=== PATIENT | female | born 1985 | race African-American/Black ===

== ENCOUNTER 2016-08-15 07:54 | Emergency (ER) | payer OTHER ==
[2016-08-15 08:23] VITALS: BP 155/101; PULSE 85; TEMP 99.4; BMI 32.5
[2016-08-15] MEDS ORDERED: ONDANSETRON *ODT* 4 MG TABLET SL ONE (08:33)
[2016-08-15] MEDS ORDERED: ONDANSETRON *ODT* 4 MG TABLET ONE (08:55)
[2016-08-15 09:22] LABS: URINE APPEARANCE CLEAR; URINE BILIRUBIN NEGATIVE (NEGATIVE); URINE BLOOD NEGATIVE (NEGATIVE); URINE COLOR YELLOW; URINE GLUCOSE (UA) NEGATIVE (NEGATIVE); URINE KETONE NEGATIVE (NEGATIVE); URINE LEUK ESTERASE NEGATIVE (NEGATIVE); URINE NITRITE NEGATIVE (NEGATIVE); URINE PROTEIN NEGATIVE (NEGATIVE); URINE UROBILINOGEN NEGATIVE E.U./dl (0.2-1.0)
[2016-08-15] MEDS ORDERED: KETOROLAC TROMETHAMINE 60 MG/2 ML VIAL IM ONE (09:23)
--- NOTE | 2016-08-15 09:27 | PDOC ---
History of Present Illness - General Chief Complaint: Cold Symptoms Stated Complaint: BODY PAIN Time Seen by Provider: 08/15/16 08:33 History Source: Patient Exam Limitations: No Limitations - History of Present Illness Initial Comments: 08/15/16 09:33 31 yr female with history of sarcoidosis presents to ER with body aches and pain for one week and night sweats. Pt has cough dry, no fever no chest pain or shortness or breath. Pt denies any sick contacts. 08/15/16 09:36 Past History - Past Medical History Allergies/Adverse Reactions: Allergies Allergy/AdvReac Type Severity Reaction Status Date / Time No Known Allergies Allergy Verified 08/15/16 08:18 Home Medications: Ambulatory Orders Naproxen [Naprosyn -] 500 mg PO BID PRN #14 tablet 08/15/16 Asthma: No Cancer: No Cardiac Disorders: No Diabetes: No HTN: No Suicide Attempt (Hx): No Seizures: No Thyroid Disease: No - Immunization History Immunization Up to Date: Yes - Psycho/Social/Smoking Cessation Hx Anxiety: No Suicidal Ideation: No Smoking Status: No Smoking History: Former smoker Have you smoked in the past 12 months: No Number of Cigarettes Smoked Daily: 10 Information on smoking cessation initiated: No Hx Alcohol Use: No Drug/Substance Use Hx: No Substance Use Type: None Hx Substance Use Treatment: No Review of Systems - Review of Systems Able to Perform ROS?: Yes Is the patient limited [place] proficient: No Constitutional: Yes: Symptoms Reported, See HPI, Chills, Night Sweats HEENTM: No: Symptoms Reported Respiratory: Yes: Cough *Physical Exam - Vital Signs Last Vital Signs Temp Pulse Resp BP Pulse Ox 99.4 F 85 18 155/101 100 08/15/16 08:18 08/15/16 08:18 08/15/16 08:18 08/15/16 08:18 08/15/16 08:18 - Physical Exam General Appearance: Yes: Nourished, Appropriately Dressed HEENT: positive: EOMI, AMY, Normal ENT Inspection, TMs Normal, Pharynx Normal Neck: positive: Supple. negative: Lymphadenopathy (R), Lymphadenopathy (L) Respiratory/Chest: positive: Lungs Clear, Normal Breath Sounds. negative: Chest Tender, Respiratory Distress, Accessory Muscle Use, Crackles, Rales, Rhonchi, Stridor, Wheezing Cardiovascular: positive: Regular Rhythm, Regular Rate Gastrointestinal/Abdominal: positive: Normal Bowel Sounds, Soft Musculoskeletal: positive: Normal Inspection Extremity: positive: Normal Capillary Refill, Normal Inspection, Normal Range of Motion Integumentary: positive: Normal Color, Dry, Warm Neurologic: positive: Fully Oriented, Alert, Normal Mood/Affect, Normal Response , Motor Strength / ED Treatment Course - ADDITIONAL ORDERS Additional order review: Laboratory Results 08/15/16 08:45 Urine Color Yellow Urine Appearance Clear Urine pH 5.0 Ur Specific [place] 1.024 Urine Protein Negative Urine Glucose (UA) Negative Urine Ketones Negative Urine Blood Negative Urine Nitrite Negative Urine Bilirubin Negative Urine Urobilinogen Negative Ur Leukocyte Esterase Negative Urine HCG, Qual Negative Medical Decision Making - Medical Decision Making 08/15/16 09:36 cc: body aches and pain, cough chills, low back pain for one week no chest pain or SOB no abd pain , neg nvd will check , UTI toradol for pain, CXR flu swab pt is non toxic no acute distress 08/15/16 10:23 urine is negative, CXR is negative, pt is eating and drinking in waiting room no distress, no vomiting. will dc home with follow up wtih PMD tomorrow pt agrees with plan and understands the plan of care. all questions asked and answered. BP on discharge 130/70 left arm 139/76 right arm pt will follow with primary regarding bp. *DC/Admit/Observation/Transfer Diagnosis at time of Disposition: Acute viral syndrome - Discharge Dispostion Disposition: HOME Condition at time of disposition: Good - Prescriptions Prescriptions: Naproxen [Naprosyn -] 500 mg PO BID PRN #14 tablet PRN Reason: Pain - Referrals Referrals: Berry Singh MD [Primary Care Provider] - - Patient Instructions Additional Instructions: negative flu virus, negative pneumonia on chest xray drink pleanty of water increase your vitamin c and zinc (orange juice, over the counter Radha C or Emergency C supplements) take naprosyn for pain and body aches as needed follow with your doctor TOMORROW for a follow up visit return to ER for any worsening symptoms - Post Discharge Activity Work/School Note: Back to Work
[2016-08-15] MEDS ORDERED: KETOROLAC TROMETHAMINE 60 MG/2 ML VIAL ONE (10:08)
== END 2016-08-15 10:43 | disposition home or self-care (01) ==
LOC: JERFT 07:54
PROC: 3E0233Z Introduction of Anti-inflammatory into Muscle, Percutaneous Approach (ICD-10-PCS; principal; 2016-08-15)
DX: B34.9 Viral infection, unspecified (principal); D86.9 Sarcoidosis, unspecified; Z87.891 Personal history of nicotine dependence
CPT/HCPCS: 71020-TC; 81003; 84703; 87804; 96372; 99281-25

== ENCOUNTER 2017-01-15 09:30 | Emergency (ER) | payer OTHER ==
[2017-01-15 09:36] VITALS: BP 153/99; PULSE 92; TEMP 98.1; BMI 31.8
[2017-01-15] MEDS ORDERED: KETOROLAC TROMETHAMINE 60 MG/2 ML VIAL IM ONE (10:50)
[2017-01-15] MEDS ORDERED: CEPHALEXIN MONOHYDRATE 500 MG CAPSULE (UD) PO ONE (10:50)
--- NOTE | 2017-01-15 10:53 | PDOC ---
History of Present Illness - General Chief Complaint: Injury Stated Complaint: PAIN Time Seen by Provider: 01/15/17 10:42 History Source: Patient Exam Limitations: No Limitations - History of Present Illness Initial Comments: 01/15/17 11:08 With complaints of right foot pain, specifically second toe. States suffers from chronic athlete's foot, takes no medication or uses no creams for cure. Denies trauma, however stands most of day while at work at the [employer]. Denies fever, noted purulent drainage although nose has fungal infection between toes, specifically third and second toes worst 01/15/17 11:56 Severity: reports: moderate Pain Location: reports: lower extremity Modifying Factors: improves with: None Associated Symptoms (Fall): denies symptoms Past History - Travel Traveled outside of the country in the last 30 days: No Close contact w/someone who was outside of country & ill: No - Past Medical History Allergies/Adverse Reactions: Allergies Allergy/AdvReac Type Severity Reaction Status Date / Time No Known Allergies Allergy Verified 01/15/17 09:33 Home Medications: Ambulatory Orders Acetaminophen [Extra Strength Non-Aspirin] 500 mg PO Q6H #30 tablet 01/15/17 Cephalexin Monohydrate [Keflex -] 500 mg PO Q8H #21 capsule 01/15/17 Fluconazole [Diflucan -] 150 mg PO DAILY #1 tablet 01/15/17 Fluconazole [Diflucan -] 150 mg PO DAILY #7 tablet 01/15/17 Naproxen [Naprosyn -] 500 mg PO BID #14 tablet 01/15/17 Oxycodone HCl/Acetaminophen [Percocet 5-325 mg Tablet] 1 - 2 tab PO Q6H Asthma: No Cancer: No Cardiac Disorders: No Diabetes: No HTN: No Suicide Attempt (Hx): No Seizures: No Thyroid Disease: No Other medical history: sarcoidosis - Immunization History Immunization Up to Date: Yes - Psycho/Social/Smoking Cessation Hx Anxiety: No Suicidal Ideation: No Smoking Status: No Smoking History: Never smoked Have you smoked in the past 12 months: No Number of Cigarettes Smoked Daily: 10 Information on smoking cessation initiated: No Hx Alcohol Use: No Drug/Substance Use Hx: No Substance Use Type: None Hx Substance Use Treatment: No Trauma Specific PMHX - Complaint Specific PMHX Back Injury: No Neck Injury: No Review of Systems - Review of Systems Able to Perform ROS?: Yes Is the patient limited Citizen [place] proficient: Yes Constitutional: Yes: Symptoms Reported, See HPI, Malaise. No: Chills, Fever HEENTM: Yes: See HPI. No: Symptoms Reported Musculoskeletal: Yes: Symptoms Reported, Joint Pain Integumentary: Yes: Symptoms Reported, See HPI, Lesions (tinea infections), Rash Neurological: Yes: Symptoms reported All Other Systems: Reviewed and Negative *Physical Exam - Vital Signs Last Vital Signs Temp Pulse Resp BP Pulse Ox 98.1 F 92 H 18 153/99 100 01/15/17 09:34 01/15/17 09:34 01/15/17 09:34 01/15/17 09:34 01/15/17 09:34 - Physical Exam General Appearance: Yes: Nourished, Appropriately Dressed, Apparent Distress, Mild Distress HEENT: positive: AMY, Normal ENT Inspection, TMs Normal, Pharynx Normal Neck: positive: Supple. negative: Tender, Lymphadenopathy (R), Lymphadenopathy (L) Respiratory/Chest: positive: Lungs Clear, Normal Breath Sounds Extremity: positive: Normal Range of Motion, Tender, Swelling (to left 2nd toe thick white moist drainage with some ulceration noted between all toes, worse between second and third toe of right foot. Has severe nail changes due to onychomycosis, and bilateral soles of feet covered with a tibial infection. Has some mild erythema noted to the second and third toes and pain at MTP.), Erythema. 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 We'll treat with weekly Diflucan 6 weeks , encourage bleach baths, and follow up with podiatry. Also started on Keflex for mild cellulitis noted secondary to candidal infection *DC/Admit/Observation/Transfer Diagnosis at time of Disposition: Tinea pedis due to trichophyton - Discharge Dispostion Disposition: HOME Condition at time of disposition: Stable Admit: No - Prescriptions Prescriptions: Fluconazole [Diflucan -] 150 mg PO DAILY #1 tablet Fluconazole [Diflucan -] 150 mg PO DAILY #7 tablet Cephalexin Monohydrate [Keflex -] 500 mg PO Q8H #21 capsule Naproxen [Naprosyn -] 500 mg PO BID #14 tablet - Referrals Referrals: Berry Singh MD [Primary Care Provider] - - Patient Instructions Printed Discharge Instructions: DI for Athlete's Foot Additional Instructions: Rest, keep cool and dry- avoid strenuous activity or hot /humid environments Less hot showers, no abrasive soaps May use heavy creams like Eucerin or Cetaphil to keep skin moist May apply Aveeno, calamine lotion, [id number] hydrocortisone creams as needed for symptoms May use Benadryl at night for antihistamine, Zyrtec/ Gisela or Claritin for daytime antihistamine use to help with itching May use tqok-mag-hccavso hydrocortisone cream on all areas except face Try to identify cause for rash and avoid exposures Followup with PMD in one week if no resolution Make appointment with otolaryngology surgeon for evaluation when possible - Post Discharge Activity Work/School Note: Back to Work
[2017-01-15] MEDS ORDERED: KETOROLAC TROMETHAMINE 60 MG/2 ML VIAL ONE (11:14)
[2017-01-15] MEDS ORDERED: CEPHALEXIN MONOHYDRATE 500 MG CAPSULE (UD) ONE (11:14)
== END 2017-01-15 11:37 | disposition home or self-care (01) ==
LOC: JERFT 09:30
PROC: 3E0233Z Introduction of Anti-inflammatory into Muscle, Percutaneous Approach (ICD-10-PCS; principal; 2017-01-15)
DX: B35.3 Tinea pedis (principal); B35.1 Tinea unguium
CPT/HCPCS: 84703; 96372; 99281-25

== ENCOUNTER 2017-04-30 15:58 | Emergency (ER) | payer OTHER ==
[2017-04-30 16:03] VITALS: BP 157/105; PULSE 95; TEMP 98.3; BMI 31.8
[2017-04-30] MEDS ORDERED: TETRACAINE 0.5% OPHTH SOLN 2 ML BOTTLE ONE (16:55)
--- NOTE | 2017-04-30 16:55 | PDOC ---
History of Present Illness - General Chief Complaint: Eye Problem Stated Complaint: EYE INJURY Time Seen by Provider: 04/30/17 16:37 History Source: Patient - History of Present Illness Timing/Duration: 1 hour Severity: severe Past History - Past Medical History Allergies/Adverse Reactions: Allergies Allergy/AdvReac Type Severity Reaction Status Date / Time No Known Allergies Allergy Verified 04/30/17 16:00 Home Medications: Ambulatory Orders Erythromycin 0.5% Eye Ointment [Erythromycin 0.5% Eye Ointment -] 1 applic OS QID #1 tube 04/30/17 Ibuprofen [Motrin -] 600 mg PO QID #28 tablet 04/30/17 Tramadol HCl 50 mg PO Q6H #4 tablet MDD 200mg 04/30/17 Asthma: No Cancer: No Cardiac Disorders: No Diabetes: No HTN: No Seizures: No Thyroid Disease: No Other medical history: sarcoidosis - Immunization History Immunization Up to Date: Yes - Suicide/Smoking/Psychosocial Hx Smoking Status: No Smoking History: Never smoked Have you smoked in the past 12 months: No Number of Cigarettes Smoked Daily: 10 Information on smoking cessation initiated: No Hx Alcohol Use: No Drug/Substance Use Hx: No Substance Use Type: None Hx Substance Use Treatment: No Review of Systems - Review of Systems HEENTM: Yes: Eye Pain, Blurred Vision *Physical Exam - Vital Signs Last Vital Signs Temp Pulse Resp BP Pulse Ox 98.3 F 95 H 18 157/105 100 04/30/17 16:02 04/30/17 16:02 04/30/17 16:02 04/30/17 16:02 04/30/17 16:02 - Physical Exam General Appearance: Yes: Appropriately Dressed, Moderate Distress HEENT: positive: Normal Voice, Other (gross defect to cornea, no fb on lid eversion, 2 area of uptakes in the 12 o' clock and 5 o' clock positions on ceja lamp) Neck: positive: Supple Integumentary: positive: Dry, Warm Neurologic: positive: Fully Oriented, Alert, Normal Mood/Affect Medical Decision Making - Medical Decision Making 04/30/17 16:54 31 yo F, p/w L eye pain, photophobia and tearing after being accidentally poked in the eye by her daughter's fingernail. See exam Corneal abrasion Tetanus UTD -dc w/ pain control and abx drops 04/30/17 17:08 *DC/Admit/Observation/Transfer Diagnosis at time of Disposition: Cornea abrasion Qualifiers: Encounter type: initial encounter Laterality: left Qualified Code(s): S05.02XA - Injury of conjunctiva and corneal abrasion without foreign body, left eye, initial encounter - Discharge Dispostion Disposition: HOME Condition at time of disposition: Good - Prescriptions Prescriptions: Erythromycin 0.5% Eye Ointment [Erythromycin 0.5% Eye Ointment -] 1 applic OS QID #1 tube Ibuprofen [Motrin -] 600 mg PO QID #28 tablet Tramadol HCl 50 mg PO Q6H #4 tablet MDD 200mg - Patient Instructions Printed Discharge Instructions: DI for Corneal Abrasion Additional Instructions: Take medications as directed and return for worsening of symptoms - Post Discharge Activity Work/School Note: Back to Work
[2017-04-30] MEDS ORDERED: IBUPROFEN 400 MG TABLET (FP) PO ONE ×2 (16:59→17:02)
== END 2017-04-30 17:13 | disposition home or self-care (01) ==
LOC: JERFT 15:58
DX: S05.02XA Injury of conjunctiva and corneal abrasion without foreign body, left eye, initial encounter (principal); W50.0XXA Accidental hit or strike by another person, initial encounter; Y93.89 Activity, other specified; Y92.89 Other specified places as the place of occurrence of the external cause; Y99.8 Other external cause status
CPT/HCPCS: 99281-25

== ENCOUNTER 2017-11-25 12:08 | Emergency (ER) | payer OTHER ==
[2017-11-25 12:36] VITALS: BMI 33.0
--- NOTE | 2017-11-25 13:02 | PDOC ---
History of Present Illness - History of Present Illness Initial Comments: 11/25/17 13:29 The patient is a 32 year old female, with a significant past medical history of HTN (diagnosed 2 weeks ago) and sarcoidosis, who presents to the emergency department with, two days of a migraine. As per patient, she has had a headache for two weeks. Two weeks ago when her symptoms onset she tested her blood pressure routinely, and she observed a systolic reading of 189. 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 She reports going to her PCP 5 days ago, to whom adjusted her prescription from once a day to twice a day. Last night, the patient reports her headache to had progressed to a migraine. She reports to be localized to the frontal region and have associated dizziness, nausea, and dry heaving. This morning she reports waking up 5:30am with a migraine ranking at a 9/10 with associated photophobia and vertigo. She denies recent fevers, chills, headache or dizziness. She denies recent nausea, vomit, diarrhea or constipation. She denies recent dysuria, frequency, urgency or hematuria. She denies recent chest pain or shortness of breath. Allergies: NKA Past surgical history: None reported. Primary Care Physician: Dr. Berry Singh <Salo Rosado - Last Filed: 11/25/17 13:29> <Ana Mann - Last Filed: 11/25/17 16:20> - General Chief Complaint: Headache Stated Complaint: BLOOD PRESSURE PROBLEM, HEADACHE Time Seen by Provider: 11/25/17 12:32 Past History <Salo Rosado - Last Filed: 11/25/17 13:29> - Past Medical History Asthma: No Cancer: No Cardiac Disorders: No COPD: No Diabetes: No HTN: No Seizures: No Thyroid Disease: No - Immunization History Immunization Up to Date: Yes - Suicide/Smoking/Psychosocial Hx Smoking Status: No Smoking History: Never smoked Have you smoked in the past 12 months: No Number of Cigarettes Smoked Daily: 10 Information on smoking cessation initiated: No Hx Alcohol Use: No Drug/Substance Use Hx: No Substance Use Type: None Hx Substance Use Treatment: No <nAa Mann - Last Filed: 11/25/17 16:20> - Past Medical History Allergies/Adverse Reactions: Allergies Allergy/AdvReac Type Severity Reaction Status Date / Time No Known Allergies Allergy Verified 04/30/17 16:00 Home Medications: Ambulatory Orders Amlodipine Besylate [Norvasc -] 5 mg PO BID 11/25/17 Review of Systems - Review of Systems Able to Perform ROS?: Yes Comments:: 11/25/17 13:29 GENERAL/CONSTITUTIONAL: No fever or chills. No weakness. HEAD, EYES, EARS, NOSE AND THROAT: No change in vision. No ear pain or discharge. No sore throat. CARDIOVASCULAR: No chest pain or shortness of breath. RESPIRATORY: No cough, wheezing, or hemoptysis. (+)GASTROINTESTINAL: Nausea. No vomiting, diarrhea or constipation. GENITOURINARY: No dysuria, frequency, or change in urination. MUSCULOSKELETAL: No joint or muscle swelling or pain. No neck or back pain. SKIN: No rash (+)NEUROLOGICAL: Migraine. Vertigo. Photophobia. No loss of consciousness, or change in strength/sensation. ENDOCRINE: No increased thirst. No abnormal weight change. HEMATOLOGIC/LYMPHATIC: No anemia, easy bleeding, or history of blood clots. ALLERGIC/IMMUNOLOGIC: No hives or skin allergy. All Other Systems: Reviewed and Negative <Salo Rosado - Last Filed: 11/25/17 13:29> *Physical Exam - Vital Signs Last Vital Signs Temp Pulse Resp BP Pulse Ox 98.9 F 80 16 127/82 100 11/25/17 12:24 11/25/17 12:24 11/25/17 12:24 11/25/17 12:24 11/25/17 12:24 <Salo Rosado - Last Filed: 11/25/17 13:29> - Vital Signs Last Vital Signs Temp Pulse Resp BP Pulse Ox 98.9 F 80 16 127/82 100 11/25/17 12:24 11/25/17 12:24 11/25/17 12:24 11/25/17 12:24 11/25/17 12:24 - Physical Exam Comments: GENERAL: Awake, alert, and fully oriented, in no acute distress HEAD: No signs of trauma EYES: PERRLA, EOMI, sclera anicteric, conjunctiva clear ENT: Auricles normal inspection, hearing grossly normal, nares patent, oropharynx clear without exudates. Moist mucosa. TMs normal B/L. NECK: Normal ROM, supple, no lymphadenopathy, JVD, or masses LUNGS: Breath sounds equal, clear to auscultation bilaterally. No wheezes, and no crackles HEART: Regular rate and rhythm, normal S1 and S2, no murmurs, rubs or gallops ABDOMEN: Soft, nontender, normoactive bowel sounds. No guarding, no rebound. No masses EXTREMITIES: Normal range of motion, no edema. No clubbing or cyanosis. No cords, erythema, or tenderness NEUROLOGICAL: Cranial nerves II through XII grossly intact. Normal speech, normal gait SKIN: Warm, Dry, normal turgor, no rashes or lesions noted. <Ana Mann - Last Filed: 11/25/17 16:20> Medical Decision Making - Medical Decision Making 11/25/17 13:27 Pt recently diagnosed with HTN, now with headache, initially bitemporal and now R parietal. Will obtain CTH as she has not had imaging in the past. However, very low suspicion for acute intracranial process. No signs of stroke either. Neurologically intact. Will give IV tylenol, reglan, and IV fluids. <Ana Mann - Last Filed: 11/25/17 16:20> *DC/Admit/Observation/Transfer - Attestations Scribe Attestion: 11/25/17 13:29 Documentation prepared by Salo Rosado, acting as certified medical coding specialist for Ana Mann MD. <Salo Rosado - Last Filed: 11/25/17 13:29> - Discharge Dispostion Admit: No <Ana Mann - Last Filed: 11/25/17 16:20> Diagnosis at time of Disposition: Headache Qualifiers: Headache type: unspecified Headache chronicity pattern: acute headache Intractability: not intractable Qualified Code(s): R51 - Headache - Discharge Dispostion Disposition: HOME Condition at time of disposition: Stable - Referrals Referrals: Berry Singh MD [Primary Care Provider] - - Patient Instructions - Post Discharge Activity
[2017-11-25] MEDS ORDERED: ACETAMINOPHEN 1000 MG/100 ML VIAL (NON FORMULARY) IVPB ONE (13:15)
[2017-11-25] MEDS ORDERED: METOCLOPRAMIDE HCL INJECTION 10 MG/2 ML VIAL IVPB ONE (13:15)
[2017-11-25] MEDS ORDERED: SODIUM CHLORIDE 1,000 ML IV STA (13:15)
[2017-11-25] MEDS ORDERED: METOCLOPRAMIDE HCL INJECTION 10 MG/2 ML VIAL ONE (13:21)
[2017-11-25] MEDS ORDERED: LORATADINE 10 MG TABLET ONE (13:22)
[2017-11-25] MEDS ORDERED: ACETAMINOPHEN INJECTION 100 ML IVPB ONE (13:22)
[2017-11-25 17:08] VITALS: BP 139/82; PULSE 81; TEMP 98.3
== END 2017-11-25 17:08 | disposition home or self-care (01) ==
LOC: JER 12:08
PROC: 3E0337Z Introduction of Electrolytic and Water Balance Substance into Peripheral Vein, Percutaneous Approach (ICD-10-PCS; principal; 2017-11-25)
PROC: 3E033GC Introduction of Other Therapeutic Substance into Peripheral Vein, Percutaneous Approach (ICD-10-PCS; 2017-11-25)
PROC: 3E033NZ Introduction of Analgesics, Hypnotics, Sedatives into Peripheral Vein, Percutaneous Approach (ICD-10-PCS; 2017-11-25)
DX: R51 Headache (principal); I10 Essential (primary) hypertension
CPT/HCPCS: 70450-TC; 84703; 96361; 96374; 96375; 99282-25; J0131; J7030

== ENCOUNTER 2018-08-18 09:04 | Emergency (ER) | payer OTHER ==
[2018-08-18 09:25] VITALS: BP 154/91; PULSE 106; TEMP 98; BMI 33.2
--- NOTE | 2018-08-18 09:38 | PDOC ---
History of Present Illness - General Chief Complaint: Eye Problem Stated Complaint: RT EYE PAIN Time Seen by Provider: 08/18/18 09:29 History Source: Patient Exam Limitations: No Limitations - History of Present Illness Initial Comments: 08/18/18 10:10 Pt is a 33 y/o F with a PMH of herpetic kerititis who presents to the ED with R eye pain. Pt states she was seen at [facility] ED and diagnosed with a corneal abrasion. She was given cipro drops and sent home. She tried to make an appointment with her water quality assistant, but was unable to get in touch with them. She presents today with pain despite 5 days of treatment. Denies visual changes , diploplia, fever, spots and floaters. Past History - Travel Traveled outside of the country in the last 30 days: No Close contact w/someone who was outside of country & ill: No - Past Medical History Allergies/Adverse Reactions: Allergies Allergy/AdvReac Type Severity Reaction Status Date / Time No Known Allergies Allergy Verified 08/19/18 09:29 Home Medications: Ambulatory Orders Amlodipine Besylate [Norvasc -] 5 mg PO BID 11/25/17 Erythromycin 0.5% Eye Ointment [Erythromycin 0.5% Eye Ointment -] 1 applic OD TID #1 tube 08/18/18 Loratadine [Claritin -] 10 mg PO DAILY #30 tablet 08/18/18 Asthma: No Cancer: No Cardiac Disorders: No COPD: No Diabetes: No HTN: Yes Seizures: No Thyroid Disease: No - Immunization History Immunization Up to Date: Yes - Suicide/Smoking/Psychosocial Hx Smoking Status: No Smoking History: Never smoked Have you smoked in the past 12 months: No Number of Cigarettes Smoked Daily: 10 Information on smoking cessation initiated: No Hx Alcohol Use: No Drug/Substance Use Hx: No Substance Use Type: None Hx Substance Use Treatment: No Review of Systems - Review of Systems Able to Perform ROS?: Yes Comments:: 08/18/18 09:55 CONSTITUTIONAL: Absent: fever, chills, diaphoresis, generalized weakness, malaise, loss of appetite HEENT: Present: R eye pain Absent: rhinorrhea, nasal congestion, throat pain, throat swelling, difficulty swallowing, mouth swelling, ear pain, eye pain, visual Changes CARDIOVASCULAR: Absent: chest pain, loss of consciousness, palpitations, irregular heart rate, peripheral edema RESPIRATORY: Absent: cough, shortness of breath, dyspnea with exertion, orthopnea, wheezing, stridor, hemoptysis GASTROINTESTINAL: Absent: abdominal pain, abdominal distension, nausea, vomiting, diarrhea, constipation, melena, hematochezia GENITOURINARY: Absent: dysuria, frequency, urgency, hesitancy, hematuria, flank pain, genital pain MUSCULOSKELETAL: Absent: myalgia, arthralgia, joint swelling SKIN: Absent: rash, itching, pallor HEMATOLOGIC/IMMUNOLOGIC: Absent: easy bleeding, easy bruising, lymphadenopathy, frequent infections ENDOCRINE: Absent: unexplained weight gain, unexplained weight loss, heat intolerance, cold intolerance NEUROLOGIC: Absent: headache, focal weakness or paresthesias, dizziness, unsteady gait, seizure, mental status changes, bladder or bowel incontinence PSYCHIATRIC: Absent: anxiety, depression, suicidal or homicidal ideation, hallucinations. Is the patient limited Nepali proficient: No *Physical Exam - Vital Signs Last Vital Signs Temp Pulse Resp BP Pulse Ox 98 F 106 H 20 154/91 100 08/18/18 09:21 08/18/18 09:21 08/18/18 09:21 08/18/18 09:21 08/18/18 09:21 - Physical Exam Comments: 08/18/18 09:55 GENERAL: Well developed, well nourished. Awake and alert. No acute distress. HEENT: Normocephalic, atraumatic. PERRLA, EOMI. No conjunctival pallor. Sclera are non -icteric. On flurosceine stain, two punctate lesions noted to the 5 o'oclock region. No foreign body noted, no rust ring.Moist mucous membranes. Oropharynx is clear. SKIN: Warm and dry. Normal capillary refill. No rashes. No jaundice. NEUROLOGICAL: Alert, awake, appropriate. Cranial nerves 2-12 intact. No deficits to light touch and temperature in face, upper extremities and lower extremities. No motor deficits in the in face, upper extremities and lower extremities. Normoreflexic in the upper and lower extremities. Normal speech. Toes are down- going bilaterally. Gait is normal without ataxia. PSYCHIATRIC: Cooperative. Good eye contact. Appropriate mood and affect. Moderate Sedation - Procedure Monitoring Vital Signs: Procedure Monitoring Vital Signs Temperature 98 F 08/18/18 09:21 Pulse Rate 106 H 08/18/18 09:21 Respiratory Rate 20 08/18/18 09:21 Blood Pressure 154/91 08/18/18 09:21 O2 Sat by Pulse Oximetry (%) 100 08/18/18 09:21 Medical Decision Making - Medical Decision Making 08/18/18 09:37 Corrected: OS 20/25 OD 20/40 OU 20/30 Pt is a 33 y/o F who presents to the ED with eye pain for 5 days -On exam, pt with two puncate lesions on flouroscein stain. No obvious herpetic keratitis at this time -Pt to follow up with her water quality assistant tomorrow -Explained to angel that this does not appear to be herpetic keratitis at this time, however cannot r/o early lesion and that she must keep her follow up- -Switched pt to erythromycin ointment for corneal abrasion -DC home -I discussed the physical exam findings, ancillary test results and final diagnoses with the patient. I answered all of the patient's questions. The patient was satisfied with the care received and felt comfortable with the discharge plan and treatment plan. The Patient agrees to follow up with the primary care physician/specialist within 24-72 hours. Return precautions were given. *DC/Admit/Observation/Transfer Diagnosis at time of Disposition: Cornea abrasion - Discharge Dispostion Disposition: HOME Condition at time of disposition: Stable Decision to Admit order: No - Prescriptions Prescriptions: Erythromycin 0.5% Eye Ointment [Erythromycin 0.5% Eye Ointment -] 1 applic OD TID #1 tube Loratadine [Claritin -] 10 mg PO DAILY #30 tablet - Referrals Referrals: Berry Singh MD [Primary Care Provider] - - Patient Instructions Printed Discharge Instructions: DI for Corneal Abrasion Additional Instructions: You have a corneal abrasion Please switch to using the erythromycin ointment three times a day Use warm compresses to the eye every 2 hours to help with the swelling You may take a daily claritin. Follow up with your water quality assistant tomorrow Return to the ED for worsening pain, fever, visual changes or if you have any changes in your symptoms - Post Discharge Activity Forms/Work/School Notes: Back to Work
[2018-08-18] MEDS ORDERED: ERYTHROMYCIN 0.5% OPHTHALMIC OINTMENT 3.5 GM TUBE OD ONE (09:58)
[2018-08-18] MEDS ORDERED: ERYTHROMYCIN 0.5% OPHTHALMIC OINTMENT 3.5 GM TUBE ONE (10:01)
== END 2018-08-18 10:04 | disposition home or self-care (01) ==
LOC: JERFT 09:04
PROC: 4A07X0Z Measurement of Visual Acuity, External Approach (ICD-10-PCS; principal; 2018-08-18)
DX: S05.01XD Injury of conjunctiva and corneal abrasion without foreign body, right eye, subsequent encounter (principal); X58.XXXD Exposure to other specified factors, subsequent encounter; I10 Essential (primary) hypertension
CPT/HCPCS: 99173; 99281-25

== ENCOUNTER 2018-10-12 15:01 | Emergency (ER) | payer OTHER ==
[2018-10-12 15:22] VITALS: BP 148/77; PULSE 103; TEMP 98.6; BMI 35.1
--- NOTE | 2018-10-12 15:39 | PDOC ---
History of Present Illness - General Chief Complaint: Toothache Stated Complaint: TOOTHACHE Time Seen by Provider: 10/12/18 15:34 - History of Present Illness Initial Comments: 10/12/18 15:36 33-year-old female presents for evaluation of 2 days of toothache without systemic symptoms Past History - Past Medical History Allergies/Adverse Reactions: Allergies Allergy/AdvReac Type Severity Reaction Status Date / Time No Known Allergies Allergy Verified 10/12/18 15:18 Home Medications: Ambulatory Orders Amlodipine Besylate [Norvasc -] 5 mg PO BID 11/25/17 Amoxicillin - [Amoxicillin 875mg Tablet -] 875 mg PO BID #14 tab 10/12/18 Ibuprofen [Motrin -] 600 mg PO TID #30 tablet 10/12/18 Asthma: No Cancer: No Cardiac Disorders: No COPD: No Diabetes: No HTN: Yes Seizures: No Thyroid Disease: No - Immunization History Immunization Up to Date: Yes - Suicide/Smoking/Psychosocial Hx Smoking Status: No Smoking History: Never smoked Have you smoked in the past 12 months: No Number of Cigarettes Smoked Daily: 10 Hx Alcohol Use: No Drug/Substance Use Hx: No Substance Use Type: None Hx Substance Use Treatment: No Review of Systems - Review of Systems Constitutional: No: Fever HEENTM: Yes: Dental Problems *Physical Exam - Vital Signs Last Vital Signs Temp Pulse Resp BP Pulse Ox 98.6 F 103 H 19 148/77 100 10/12/18 15:18 10/12/18 15:18 10/12/18 15:18 10/12/18 15:18 10/12/18 15:18 - Physical Exam Comments: 10/12/18 15:36 R upper molar cavity, no surrounding erythema or fluctuance, HEAD: NC/AT EYES: Conjuntiva clear Ears: Canals and TM's normal NOSE: No d/c THROAT: Moist mucous membrances, oral pharanx clear, uvula midline NECK: Supple without adenopathy CARDIAC: S1 S2 LUNGS: CTA Full and Equal breath sounds ABDOMEN: Soft NT ND MS: Full ROM in all joints without edema NEUROLOGIC: No gross sensory or motor deficits, NVID SKIN: Normal color and temperature Moderate Sedation - Procedure Monitoring Vital Signs: Procedure Monitoring Vital Signs Temperature 98.6 F 10/12/18 15:18 Pulse Rate 103 H 10/12/18 15:18 Respiratory Rate 19 10/12/18 15:18 Blood Pressure 148/77 10/12/18 15:18 O2 Sat by Pulse Oximetry (%) 100 10/12/18 15:18 *DC/Admit/Observation/Transfer Diagnosis at time of Disposition: Tooth ache - Discharge Dispostion Disposition: HOME Condition at time of disposition: Stable Decision to Admit order: No - Prescriptions Prescriptions: Amoxicillin - [Amoxicillin 875mg Tablet -] 875 mg PO BID #14 tab Ibuprofen [Motrin -] 600 mg PO TID #30 tablet - Referrals Referrals: Berry Singh MD [Primary Care Provider] - [facility]] - Patient Instructions Printed Discharge Instructions: DI for Dental Pain Additional Instructions: Please take the anti-inflammatory as directed. One tablet 3 times a day with food. Discontinue the medication if it bothers her stomach. Please take the antibiotics as directed. Return to the emergency room for worsening symptoms and follow-up with urgent care dental in one to 2 days or your regular dentist. - Post Discharge Activity
== END 2018-10-12 15:44 | disposition home or self-care (01) ==
LOC: JERFT 15:01
DX: K08.89 Other specified disorders of teeth and supporting structures (principal); I10 Essential (primary) hypertension
CPT/HCPCS: 99281-25

== ENCOUNTER 2018-11-23 12:54 | Emergency (ER) | payer OTHER ==
[2018-11-23 13:03] VITALS: BP 121/86; PULSE 81; TEMP 98.4; BMI 81.8
[2018-11-23] MEDS ORDERED: PENICILLIN G BENZATHINE 1,200,000 UNIT/2 ML PFS IM ONE (13:21)
[2018-11-23] MEDS ORDERED: DEXAMETHASONE LIQUID 0.5 MG/5 ML 240 ML BULK BOTTLE PO ONE (13:21)
--- NOTE | 2018-11-23 13:23 | PDOC ---
History of Present Illness - General Chief Complaint: Sore Throat Stated Complaint: SORE THROAT Time Seen by Provider: 11/23/18 13:13 - History of Present Illness Initial Comments: 11/23/18 13:21 33-year-old female without comorbidities presents for evaluation of sore throat times one day Past History - Past Medical History Allergies/Adverse Reactions: Allergies Allergy/AdvReac Type Severity Reaction Status Date / Time No Known Allergies Allergy Verified 10/12/18 15:18 Home Medications: Ambulatory Orders Amlodipine Besylate [Norvasc -] 5 mg PO BID 11/25/17 Asthma: No Cancer: No Cardiac Disorders: No COPD: No Diabetes: No HTN: Yes Seizures: No Thyroid Disease: No - Immunization History Immunization Up to Date: Yes - Suicide/Smoking/Psychosocial Hx Smoking Status: No Smoking History: Never smoked Have you smoked in the past 12 months: No Number of Cigarettes Smoked Daily: 10 Information on smoking cessation initiated: No Hx Alcohol Use: No Drug/Substance Use Hx: No Substance Use Type: None Hx Substance Use Treatment: No Review of Systems - Review of Systems HEENTM: Yes: Throat Pain, Difficulty Swallowing *Physical Exam - Vital Signs Last Vital Signs Temp Pulse Resp BP Pulse Ox 98.4 F 81 18 121/86 100 11/23/18 12:56 11/23/18 12:56 11/23/18 12:56 11/23/18 12:56 11/23/18 12:56 - Physical Exam Comments: 11/23/18 13:21 HEAD: NC/AT EYES: Conjuntiva clear Ears: Canals and TM's normal NOSE: No d/c THROAT: Moist mucous membrances, oral pharanx erythemic with exudate, uvula midline NECK: Supple with adenopathy CARDIAC: S1 S2 LUNGS: CTA Full and Equal breath sounds ABDOMEN: Soft NT ND MS: Full ROM in all joints without edema NEUROLOGIC: No gross sensory or motor deficits, NVID SKIN: Normal color and temperature no lesions or rashes Medical Decision Making - Medical Decision Making 11/23/18 13:21 Impressive examination, treatment options discussed. Patient elected Bicillin and Decadron *DC/Admit/Observation/Transfer Diagnosis at time of Disposition: Strep pharyngitis - Discharge Dispostion Disposition: HOME Condition at time of disposition: Stable Decision to Admit order: No - Referrals Referrals: Berry Singh MD [Primary Care Provider] - - Patient Instructions Printed Discharge Instructions: Strep Throat, DI for Strep Throat Additional Instructions: He do not require further antibiotics. You were treated in the emergency room with a one-time injection. As well as a long-acting steroid which will help with her pain. She is require medication you may only take Tylenol at this point. Return to the emergency room for worsening symptoms and follow-up with primary care physician in one to 2 days for further evaluation and treatment options. - Post Discharge Activity
[2018-11-23] MEDS ORDERED: DEXAMETHASONE SOD PHOSPHATE 10 MG/1 ML VIAL ONE (13:25)
[2018-11-23] MEDS ORDERED: PENICILLIN G BENZATHINE 2,400,000 UNIT/4 ML PFS ONE (13:26)
== END 2018-11-23 13:41 | disposition home or self-care (01) ==
LOC: JERFT 12:54
DX: J02.0 Streptococcal pharyngitis (principal); B95.5 Unspecified streptococcus as the cause of diseases classified elsewhere
CPT/HCPCS: 96372; 99281-25

== ENCOUNTER 2019-07-22 15:28 | Emergency (ER) | payer OTHER ==
--- NOTE | 2019-07-22 15:35 | PDOC ---
Rapid Medical Evaluation Chief Complaint: Vaginal Bleeding Time Seen by Provider: 07/22/19 15:32 Medical Evaluation: Allergies Allergy/AdvReac Type Severity Reaction Status Date / Time No Known Allergies Allergy Verified 10/12/18 15:18 07/22/19 15:33 I have performed a brief in-person evaluation of this patient. The patient presents with a chief complaint of: vaginal spoting which has been intermittent not soaking pad. did home PT which was positive. LMP 06/19 Pertinent physical exam findings: A&O x 3 in NAD I have ordered the following: beta hcg, cbc, t&s The patient will proceed to the ED for further evaluation. Discharge Disposition - Diagnosis Vaginal bleeding - Discharge Dispostion Condition at time of disposition: Stable - Referrals - Patient Instructions - Post Discharge Activity
[2019-07-22 15:36] VITALS: TEMP 98.1; BMI 38.7
[2019-07-22 15:55] LABS: BASO % 0.9 % (0-2.0); EOS % 2.1 % (0-4.5); HEMATOCRIT 36.7 % (32.4-45.2); HEMOGLOBIN 11.6 GM/dL (10.7-15.3); LYMPH % 18.1 % (8-40); MCHC 31.5 g/dl (32.0-36.0); MEAN CELL VOLUME 76.2 fl (80-96); MEAN PLT VOLUME 7.6 fl (7.5-11.1); MONO % 5.7 % (3.8-10.2); NEUT % 73.2 % (42.8-82.8); PLATELET COUNT 397 K/MM3 (134-434); RBC 4.81 M/mm3 (3.60-5.2); RDW 15.4 % (11.6-15.6); WHITE BLOOD COUNT 10.1 K/mm3 (4.0-10.0)
[2019-07-22 15:58] LABS: HYALINE CASTS 3 /lpf (0-8); PH,URINE 5.5 (5.0-8.0); URINE APPEARANCE CLOUDY; URINE BACTERIA 41.3 /hpf (NEGATIVE); URINE BILIRUBIN NEGATIVE (NEGATIVE); URINE COLOR YELLOW; URINE GLUCOSE (UA) NEGATIVE (NEGATIVE); URINE KETONE TRACE (NEGATIVE); URINE LEUK ESTERASE NEGATIVE (NEGATIVE); URINE NITRITE NEGATIVE (NEGATIVE); URINE PROTEIN 1+ (NEGATIVE); URINE RBC 1 /hpf (0-4); URINE WBC 3 /hpf (0-5)
--- NOTE | 2019-07-22 17:00 | PDOC ---
History of Present Illness - General Chief Complaint: Vaginal Bleeding Stated Complaint: VAGINAL BLEEDING Time Seen by Provider: 07/22/19 15:32 - History of Present Illness Initial Comments: 07/22/19 16:59 Ms. Henderson is a 34 yo F with a pmhx of sarcoidosis and HTN who presents to the ED with a 2d hx of vaginal spotting. Per the patient her last normal period was around 06/21/2019. Last week she felt as though she was getting her period ( cramping, breast tenderness) but instead she had just 1 day of spotting. In the interim she did not note any bleeding or spotting, then yesterday she was using the bathroom and noticed bright red blood on the toilet paper and in the toilet. She put on a pad and went about her day. She states she has mild cramping and spotting since. She took 3 home tests at home today and they were all positive so she came to the ED. On ROS she denies vaginal itching, discharge, painful sex, dysuria, nausea, vomiting, diarrhea or constipation. She endorses breast tenderness and abdominal cramping. She denies any hx of miscarriages and states she is not and has never been on any hormonal control. She has only had 1 in the past which resulted in her daughter 7 years ago. She is in a monogamous relationship with her daughters father for the last 10 years. 07/22/19 17:16 Past History - Past Medical History Allergies/Adverse Reactions: Allergies Allergy/AdvReac Type Severity Reaction Status Date / Time No Known Allergies Allergy Verified 07/22/19 15:36 Home Medications: Ambulatory Orders Amlodipine Besylate [Norvasc -] 5 mg PO BID 11/25/17 Asthma: No Cancer: No Cardiac Disorders: No COPD: No Diabetes: No HTN: Yes Seizures: No Thyroid Disease: No - Immunization History Immunization Up to Date: Yes - Psycho Social/Smoking Cessation Hx Smoking Status: No Smoking History: Never smoked Have you smoked in the past 12 months: No Number of Cigarettes Smoked Daily: 10 Information on smoking cessation initiated: No Hx Alcohol Use: No Drug/Substance Use Hx: No Substance Use Type: None Hx Substance Use Treatment: No *Physical Exam - Vital Signs Last Vital Signs Temp Pulse Resp BP Pulse Ox 98.1 F 110 H 18 137/75 100 07/22/19 15:31 07/22/19 15:31 07/22/19 15:31 07/22/19 15:31 07/22/19 15:31 ED Treatment Course - LABORATORY CBC & Chemistry Diagram: 07/22/19 15:43 - ADDITIONAL ORDERS Additional order review: Laboratory Results 07/22/19 07/22/19 07/22/19 15:43 15:43 15:43 Beta HCG, Quant 211.2 Urine Color Yellow Urine Appearance Cloudy Urine pH 5.5 Ur Specific Keller 1.023 Urine Protein 1+ H Urine Glucose (UA) Negative Urine Ketones Trace H Urine Blood 3+ H Urine Nitrite Negative Urine Bilirubin Negative Urine Urobilinogen 1.0 Ur Leukocyte Esterase Negative Urine WBC (Auto) 3 Urine RBC (Auto) 1 Urine Casts (Auto) 3 U Epithel Cells (Auto) 6.0 Urine Bacteria (Auto) 41.3 Blood Type O POSITIVE Antibody Screen Negative 07/22/19 15:43 RBC 4.81 MCV 76.2 L MCHC 31.5 L RDW 15.4 MPV 7.6 Neutrophils % 73.2 Lymphocytes % 18.1 Monocytes % 5.7 Eosinophils % 2.1 Basophils % 0.9 Medical Decision Making - Medical Decision Making 07/22/19 17:18 Ms. Henderson is a 34 yo F with a pmhx of sarcoidosis and HTN who presents to the ED with a 2d hx of vaginal spotting. - Will order repeat UA and Ucx to assess pt for asymptomatic bacteruria, if + will treat - serum B-HCG was 211.2, unlikely to be able to visualize products of conception at this stage. Patient will need to return to the ED in 2 days for follow up quantitative B-HCG test to make sure it is increasing appropriately. Will reassess necessity for TVUS or pelvic exam at that time. Patient is otherwise stable and can be discharged home pending results of repeat UA. 07/22/19 17:21 07/22/19 18:19 repeat UA with only 1WBC, no need to tx asymptomatic bacteruria at this time. Pt stable for discharge home with plans to follow up in the ED for repeat B- HCG in 2 days Discharge - Discharge Information Problems reviewed: Yes Clinical Impression/Diagnosis: Vaginal bleeding Condition: Stable Disposition: HOME - Admission No - Follow up/Referral - Patient Discharge Instructions Additional Instructions: You came to the hospital because of vaginal spotting with a positive test. We confirmed you are . You will need to return to the emergency department in 2 days for a repeat test to make sure the is growing and progressing normally. - Post Discharge Activity
--- NOTE | 2019-07-22 17:15 | PDOC ---
Attending Attestation - Resident Resident Name: Jennifer Cortés - ED Attending Attestation I have performed the following: I have examined & evaluated the patient, The case was reviewed & discussed with the resident, I agree w/resident's findings & plan, Exceptions are as noted - HPI HPI: 07/22/19 17:12 34-year-old female past medical history 2 para 1 presents with complaint of 2 days of spotting - Physicial Exam PE: 07/22/19 17:12 wnwd 34 yo female with vaginal spotting head ncat neck supple lungs cta b/l cvs [id number] abd no rebound, nontender skin warm and dry neuro axox3 , ambulatory - Medical Decision Making 07/22/19 17:15 LMP in June she noted some spotting and did home preg test that was positive bhcg only 200 -she denies pelvic pain,vaginal d/c imp early vs threatened ab vs ectopic pt needs to have repeat bhcg and pelvic US iin 48 hours 07/22/19 17:18
[2019-07-22 17:34] LABS: EPI CELLS 2.1 /HPF (0-5/HPF); HYALINE CASTS 2 /lpf (0-8); PH,URINE 5.5 (5.0-8.0); URINE APPEARANCE CLEAR; URINE BILIRUBIN NEGATIVE (NEGATIVE); URINE COLOR YELLOW; URINE GLUCOSE (UA) NEGATIVE (NEGATIVE); URINE KETONE TRACE (NEGATIVE); URINE LEUK ESTERASE NEGATIVE (NEGATIVE); URINE NITRITE NEGATIVE (NEGATIVE); URINE PROTEIN NEGATIVE (NEGATIVE); URINE RBC 1 /hpf (0-4); URINE WBC 1 /hpf (0-5)
[2019-07-22 18:28] VITALS: BP 137/73; PULSE 93
== END 2019-07-22 18:35 | disposition home or self-care (01) ==
LOC: JER 15:28
DX: O26.891 Other specified pregnancy related conditions, first trimester (principal); O20.8 Other hemorrhage in early pregnancy; Z3A.01 Less than 8 weeks gestation of pregnancy; O16.1 Unspecified maternal hypertension, first trimester; Z3A.00 Weeks of gestation of pregnancy not specified
CPT/HCPCS: 36415; 81003; 84702; 85025; 86850; 86900; 86901; 87086; 99283-25

== ENCOUNTER 2019-07-24 09:38 | Emergency (ER) | payer OTHER ==
[2019-07-24 09:58] VITALS: BP 142/88; PULSE 82; TEMP 98; BMI 38.7
--- NOTE | 2019-07-24 10:10 | PDOC ---
History of Present Illness - General Chief Complaint: Revisit, Lab Variance Stated Complaint: REVISIT Time Seen by Provider: 07/24/19 10:01 History Source: Patient Exam Limitations: No Limitations - History of Present Illness Initial Comments: 07/24/19 10:03 Patient was seen here 2 days ago for vaginal bleeding with a confirmed of 211. Instructed to return here today for repeat beta-hCG and reevaluation. Is this a multiple visit Asthma Patient?: No Timing/Duration: unsure Past History - Travel Traveled outside of the country in the last 30 days: No - Past Medical History Allergies/Adverse Reactions: Allergies Allergy/AdvReac Type Severity Reaction Status Date / Time No Known Allergies Allergy Verified 07/22/19 15:36 Home Medications: Ambulatory Orders Amlodipine/Atorvastatin [Amlodipine-Atorvast 10-20 mg] 1 each PO DAILY 07/24/19 Asthma: No Cancer: No Cardiac Disorders: No COPD: No Diabetes: No HTN: Yes Seizures: No Thyroid Disease: No - Reproductive History (#): 2 Para: 1 - Immunization History Immunization Up to Date: Yes - Psycho Social/Smoking Cessation Hx Smoking Status: No Smoking History: Never smoked Have you smoked in the past 12 months: No Number of Cigarettes Smoked Daily: 10 Hx Alcohol Use: No Drug/Substance Use Hx: No Substance Use Type: None Hx Substance Use Treatment: No Review of Systems - Review of Systems Able to Perform ROS?: Yes Is the patient limited Citizen Of [place] proficient: Yes Constitutional: Yes: Symptoms Reported, See HPI, Fever, Malaise HEENTM: Yes: See HPI. No: Symptoms Reported Respiratory: No: See HPI : Yes: See HPI. No: Symptoms Reported, Dysuria, Discharge All Other Systems: Reviewed and Negative *Physical Exam - Vital Signs Last Vital Signs Temp Pulse Resp BP Pulse Ox 98 F 82 16 142/88 100 07/24/19 09:56 07/24/19 09:56 07/24/19 09:56 07/24/19 09:56 07/24/19 09:56 - Physical Exam General Appearance: Yes: Nourished, Appropriately Dressed. No: Apparent Distress HEENT: positive: AMY, Normal ENT Inspection, Normal Voice, TMs Normal, Pharynx Normal Neck: positive: Tender, Supple Respiratory/Chest: positive: Lungs Clear Cardiovascular: positive: Regular Rhythm Gastrointestinal/Abdominal: positive: Soft. negative: Tender Extremity: positive: Normal Capillary Refill, Normal Inspection Integumentary: positive: Normal Color, Dry, Warm Neurologic: positive: host/hostess II-XII NML intact, Fully Oriented, Alert, Normal Mood/ Affect, Normal Response, Motor Strength 5/5 Medical Decision Making - Medical Decision Making 07/24/19 11:[address] Zheng's office who agrees ultrasound at [facility] to confirm a non-fallopian tube would be indicated. Patient has appointment with Dr. Zheng on Sunday this next week and if able will be discharged with ultrasound CD and information to be delivered at that appointment. 07/24/19 13:40 Ultrasound reveals bilateral ovarian cysts with some small amount of fluid in the cul-de-sac. With review of Dr. Kelly who read the ultrasound states was no obvious evidence of ectopic however may be early in to tell. There was also no evidence of intrauterine . These results were reviewed with the patient, given copy of CD and ultrasound report, has appointment to see her SCHEDULE PLANNING MANAGER on Sunday, Dr. Zheng. Understands need to return to emergency department for worsening cramping, fevers, bleeding or other symptomatic problem. Discharge - Discharge Information Problems reviewed: No Clinical Impression/Diagnosis: Vaginal bleeding Condition: Stable Disposition: HOME - Admission No - Follow up/Referral Referrals: Berry Singh MD [Primary Care Provider] - - Patient Discharge Instructions Patient Printed Discharge Instructions: DI for Vaginal Bleeding During Additional Instructions: Rest, drink lots of fluids Avoid strenuous activity or exercise until seen by Be sure to keep appointment on Sunday with Dr. Zheng for review of ultrasound and laboratory work Return to emergency department for worsened bleeding, cramping, fevers or worsening symptoms. - Post Discharge Activity Work/Back to School Note: Back to Work
[2019-07-24 10:33] LABS: PH,URINE 5.5 (5.0-8.0); URINE APPEARANCE CLEAR; URINE BILIRUBIN NEGATIVE (NEGATIVE); URINE COLOR YELLOW; URINE GLUCOSE (UA) NEGATIVE (NEGATIVE); URINE KETONE NEGATIVE (NEGATIVE); URINE LEUK ESTERASE NEGATIVE (NEGATIVE); URINE NITRITE NEGATIVE (NEGATIVE); URINE PROTEIN NEGATIVE (NEGATIVE); URINE UROBILINOGEN 0.2 mg/dL (0.2-1.0)
== END 2019-07-24 13:44 | disposition home or self-care (01) ==
LOC: JERFT 09:38
DX: O26.891 Other specified pregnancy related conditions, first trimester (principal); N93.9 Abnormal uterine and vaginal bleeding, unspecified; Z3A.00 Weeks of gestation of pregnancy not specified; I10 Essential (primary) hypertension
CPT/HCPCS: 36415; 76817-TC; 81003; 84702; 99282-25

== ENCOUNTER 2019-07-30 07:53 | Emergency (ER) | payer OTHER ==
[2019-07-30 08:01] VITALS: BP 184/98; PULSE 82; TEMP 98.5; BMI 39.5
--- NOTE | 2019-07-30 08:50 | PDOC ---
Documentation entered by Mary Horne SCRIBE, acting as scribe for José Miguel Collier MD. José Miguel Collier MD: This documentation has been prepared by the Coleen fernandes Brenda, SCRIBE, under my direction and personally reviewed by me in its entirety. I confirm that the documentation accurately reflects all work, treatment, procedures, and medical decision making performed by me. History of Present Illness - General Chief Complaint: Weakness Stated Complaint: WEAKNESS Time Seen by Provider: 07/30/19 08:19 History Source: Patient Exam Limitations: No Limitations - History of Present Illness Initial Comments: 07/30/19 08:42 The patient is a 34 year old female (), @ 5 weeks by LMP, with a significant PMH of sarcoidosis and HTN who presents to the emergency department with about 1 week of vaginal bleeding. Pt was seen here last week for similar complaint, at which time she had HCG in 200s, with no visible IUP on TVUS. Pt f/ u'ed with Dr. Zheng 2 days ago, who repeated blood tests (pt does not know results). Since yesterday, pt has been experiencing heavier bleeding, with passage of clots today. Pt states that this feels similar to her usual menstrual cramps. The patient denies chest pain, shortness of breath, headache and dizziness. Denies fever, chills, vomiting, diarrhea and constipation. Denies dysuria, frequency, urgency. Allergies: NKA PCP: Tanika Singh OB: Dr. Zheng Past History - Past Medical History Allergies/Adverse Reactions: Allergies Allergy/AdvReac Type Severity Reaction Status Date / Time No Known Allergies Allergy Verified 07/30/19 07:56 Home Medications: Ambulatory Orders Nitrofurantoin Monohyd/M-Cryst [Macrobid -] 100 mg PO BID #14 capsule 07/30/19 Asthma: No Cancer: No Cardiac Disorders: No COPD: No Diabetes: No HTN: Yes Seizures: No Thyroid Disease: No - Reproductive History (#): 2 Para: 1 Cervical CA: No Dysfunctional Uterine Bleeding: No Ectopic : No Endometrial CA: No Polycystic Ovaries: No Therapeutic (s) & number: No Tubal Ligation: No Spontaneous : 0 - Immunization History Immunization Up to Date: Yes - Psycho Social/Smoking Cessation Hx Smoking Status: No Smoking History: Never smoked Have you smoked in the past 12 months: No Number of Cigarettes Smoked Daily: 10 Information on smoking cessation initiated: No Hx Alcohol Use: No Drug/Substance Use Hx: No Substance Use Type: None Hx Substance Use Treatment: No Review of Systems - Review of Systems Able to Perform ROS?: Yes Comments:: 07/30/19 08:44 GENERAL/CONSTITUTIONAL: No fever or chills. No weakness. HEAD, EYES, EARS, NOSE AND THROAT: No change in vision. No ear pain or discharge. No sore throat. CARDIOVASCULAR: No chest pain, no shortness of breath, no loss of consciousness RESPIRATORY: No cough, wheezing, or hemoptysis. GASTROINTESTINAL: (+) Lower abdominal cramps, No vomiting, diarrhea or constipation. GENITOURINARY: (+) Vaginal Bleeding with clots. No dysuria, frequency, or change in urination. MUSCULOSKELETAL: No joint or muscle swelling or pain. No neck pain. SKIN: No rash NEUROLOGIC: No vertigo, no change in strength/sensation. ENDOCRINE: No increased thirst. No abnormal weight change. HEMATOLOGIC/LYMPHATIC: No anemia, easy bleeding, or history of blood clots. ALLERGIC/IMMUNOLOGIC: No hives or skin allergy. *Physical Exam - Vital Signs Last Vital Signs Temp Pulse Resp BP Pulse Ox 98.5 F 82 17 184/98 H 99 07/30/19 07:56 07/30/19 07:56 07/30/19 07:56 07/30/19 07:56 07/30/19 07:56 - Physical Exam 07/30/19 08:48 GENERAL: Awake, alert, and fully oriented, in no acute distress. HEAD: No signs of trauma EYES: PERRLA, EOMI, sclera anicteric, conjunctiva clear ENT: Auricles normal inspection, hearing grossly normal, nares patent, oropharynx clear without exudates. Moist mucosa NECK: Nontender, no stepoffs, Normal ROM, supple, no lymphadenopathy, JVD, or masses LUNGS: Breath sounds equal, clear to auscultation bilaterally. No wheezes, and no crackles HEART: Regular rate and rhythm, normal S1 and S2, no murmurs, rubs or gallops ABDOMEN: Soft, nontender, normoactive bowel sounds. No guarding, no rebound. No masses EXTREMITIES: Normal range of motion, no edema. No clubbing or cyanosis. No cords, erythema, or tenderness NEUROLOGICAL: Cranial nerves II through XII intact. 5/5 strength and sensation in all extremities, Normal speech, normal gait, normal cerebellar function SKIN: Warm, Dry, normal turgor, no rashes or lesions noted. PELVIC: + blood in vault, os closed, no CMT, no adnexal tenderness or masses ED Treatment Course - LABORATORY CBC & Chemistry Diagram: 07/30/19 08:35 07/30/19 08:35 Medical Decision Making - Medical Decision Making 07/30/19 08:53 34 F with vaginal bleeding. Likely miscarriage. Will recheck HCG and US to r/o ectopic. - Labs, HCG - TVUS - Tylenol 07/30/19 11:50 Labs show downtrending HCG Consistent with spontaneous Ab US shows no IUP, no ectopic UA consistent with UTI, will start macrobid Pt hypertensive today. States that she stopped taking her BP meds because of her . Pt <20 wks, too early for pre-eclampsia. Rechecked BP, now 130/80 without intervention. Pt to f/u with PMD for BP control Pt is well appearing, with normal vitals. Clinically stable for DC at this time. I discussed the physical exam findings, ancillary test results and final diagnoses with the patient. I answered all of the patient's questions. The patient was satisfied with the care received and felt comfortable with the discharge plan and treatment plan. The patient agrees to follow up with the primary care physician within 24-72 hours. Discharge - Discharge Information Problems reviewed: Yes Clinical Impression/Diagnosis: Vaginal bleeding, , Miscarriage Disposition: HOME - Additional Discharge Information Prescriptions: Nitrofurantoin Monohyd/M-Cryst [Macrobid -] 100 mg PO BID #14 capsule - Follow up/Referral Referrals: Berry Singh MD [Primary Care Provider] - Yuan Zheng MD [Staff Physician] - - Patient Discharge Instructions Patient Printed Discharge Instructions: DI for Vaginal Bleeding During Additional Instructions: Take the antibiotics as prescribed to treat your urine infection. Your HCG level was 84 today. Please follow up with Dr. Zheng within 1 week. If you experience worsening bleeding, pain, fevers, or any other concerning symptoms, return to the ER immediately. You also need to have your blood pressure re-checked by your primary doctor, as it was slightly elevated today. Uncontrolled blood pressure can eventually lead to kidney disease, heart disease, other serious illness, disability, or even . - Post Discharge Activity Work/Back to School Note: Back to Work
[2019-07-30] MEDS ORDERED: ACETAMINOPHEN 500 MG TABLET (FP) PO ONE (08:54)
[2019-07-30 09:11] LABS: BASO % 1.2 % (0-2.0); EOS % 2.5 % (0-4.5); HEMATOCRIT 37.7 % (32.4-45.2); LYMPH % 15.8 % (8-40); MCH 24.7 pg (25.7-33.7); MEAN CELL VOLUME 77.3 fl (80-96); MEAN PLT VOLUME 7.8 fl (7.5-11.1); NEUT % 75.5 % (42.8-82.8); PLATELET COUNT 339 K/MM3 (134-434); RBC 4.87 M/mm3 (3.60-5.2); RDW 15.1 % (11.6-15.6); WHITE BLOOD COUNT 7.8 K/mm3 (4.0-10.0)
[2019-07-30] MEDS ORDERED: ACETAMINOPHEN 325 MG TABLET (FP) ONE (09:33)
[2019-07-30 09:44] LABS: ALBUMIN 3.8 g/dl (3.4-5.0); BILIRUBIN,TOTAL 0.4 mg/dL (0.2-1); BLOOD UREA NITROGEN 10.2 mg/dL (7-18); CALCIUM 9.2 mg/dL (8.5-10.1); POTASSIUM 4.2 mmol/L (3.5-5.1); TOT PROT 7.9 g/dl (6.4-8.2)
[2019-07-30 09:54] LABS: EPI CELLS 17.5 /HPF (0-5/HPF); HYALINE CASTS 110 /lpf (0-8); URINE APPEARANCE TURBID; URINE BACTERIA 0.7 /hpf (NEGATIVE); URINE BILIRUBIN 1+ (NEGATIVE); URINE COLOR RED; URINE GLUCOSE (UA) NEGATIVE (NEGATIVE); URINE KETONE NEGATIVE (NEGATIVE); URINE LEUK ESTERASE 2+ (NEGATIVE); URINE NITRITE POSITIVE (NEGATIVE); URINE PROTEIN 2+ (NEGATIVE); URINE UROBILINOGEN 0.2 mg/dL (0.2-1.0); URINE WBC 27 /hpf (0-5)
[2019-07-30 11:48] LABS: URINE RBC 8490.2 /hpf (0-4); YEAST NONE SEEN (NEGATIVE)
== END 2019-07-30 12:25 | disposition home or self-care (01) ==
LOC: JER 07:53
DX: O26.891 Other specified pregnancy related conditions, first trimester (principal); O03.9 Complete or unspecified spontaneous abortion without complication; O10.911 Unspecified pre-existing hypertension complicating pregnancy, first trimester; O23.41 Unspecified infection of urinary tract in pregnancy, first trimester; Z3A.01 Less than 8 weeks gestation of pregnancy
CPT/HCPCS: 36415; 76830-TC; 80053; 81003; 84702; 85025; 86850; 86900; 86901; 87086; 99283-25

== ENCOUNTER 2019-10-16 16:06 | Emergency (ER) | payer OTHER ==
--- NOTE | 2019-10-16 16:17 | PDOC ---
Rapid Medical Evaluation Time Seen by Provider: 10/16/19 16:15 Medical Evaluation: Allergies Allergy/AdvReac Type Severity Reaction Status Date / Time No Known Allergies Allergy Verified 07/30/19 07:56 10/16/19 16:15 I have performed a brief in-person evaluation of this patient. The patient presents with a chief complaint of: migraine x 1 week and eyebrow swelling since today Pertinent physical exam findings: no focal neuro deficits I have ordered the following: upreg The patient will proceed to the ED for further evaluation. Discharge Disposition - Diagnosis Headache - Discharge Dispostion Condition at time of disposition: Stable - Referrals - Patient Instructions - Post Discharge Activity
[2019-10-16 16:18] VITALS: BP 137/98; TEMP 98; BMI 36.1
--- NOTE | 2019-10-16 16:33 | PDOC ---
History of Present Illness - General Chief Complaint: Migraine Headache Stated Complaint: MIGRAINES Time Seen by Provider: 10/16/19 16:15 History Source: Patient Exam Limitations: No Limitations - History of Present Illness Initial Comments: 34-year-old female with past medical history of hypertension, sarcoidosis presented to the emergency department for headache for one week and two days. Patient reported she usually gets a headache to her frontal area, about once a month, usually resolves with Tylenol. She reported when her symptoms started around a week ago, she had her hair up in a scarf, and reported that sometimes gives her headaches, so she took her hair down and took a Tylenol. She reported the headache resolved that day, but since then has been returning her in termittently every day. She reported she will take Tylenol and have relief of her headache, but it always comes back. She denied neurological changes, vision changes, fever, chest pain, shortness of breath, lightheadedness, palpitations, lower extremity swelling, weakness, numbness, tingling. Pt reported she completed a 10 day course of Amoxicillin for a sinus infection recently, at least a week ago, reported improvement of facial pressure she felt prior to antibiotics. Pt reported she feels the top of her left eyebrow is swollen, and she feels pain at that area when she raises her eyebrows or touches that area. She reported she does not feel pain deeper than at the skin in this area. She de nied history of fall/trauma/head injury/syncope. ROS General: denied fever, chills, generalized weakness. HEENT: admitted to left supra-periorbital swelling. denied sore throat, rhinorrhea, ear pain. Cardiovascular: denied chest pain, palpitations, syncope, diaphoresis. Respiratory: denied shortness of breath, cough, sputum production, hemoptysis. Gastrointestinal: denied abdominal pain, nausea, vomiting, diarrhea, constipation, blood in stool. Genitourinary: denied dysuria, increased urinary frequency, hematuria, urinary incontinence, flank pain. Back: denied back pain. Musculoskeletal: denied joint pain, muscle pain, joint swelling. Neurological: admitted to headache. denied dizziness, numbness, tingling, weakness. Integumentary: denied rash, laceration, abrasion. Hematologic/Lymphatic: denied bruising or bleeding. PE Constitutional: Well-nourished, Well-developed, appearing stated age. HEENT: head is normocephalic, atraumatic. EOMI. PERRLA. no sinus tenderness bilaterally. Mild tenderness on the superior medial aspect of the eyebrow, there is no erythema, induration, fluctuance, mass, edema, warmth, cerpitus. Neck: supple. Full ROM. Cardiovascular: regular heart rhythm. Normal S1 and S2. no murmurs. no pericardial friction rub. Respiratory: clear to auscultation bilaterally. no crackles, rhonchi or wheezing. no stridor. Gastrointestinal: soft, flat, nontender. normal bowel sounds. no rebound, guarding, or masses. Extremities: peripheral pulses intact and equal. no lower extremity edema noted. Neurological: CN2-12 intact. 5/5 strength all extremities. normal ankle plantar flexion. full sensation all extremities and bilateral face. no ataxia. gait not observed. Attends bilaterally. Follows commands. Answers questions appropriately. Normal speech. Psych: awake, alert, oriented x3. follows commands. answers questions appropriately. Past History - Past Medical History Allergies/Adverse Reactions: Allergies Allergy/AdvReac Type Severity Reaction Status Date / Time No Known Allergies Allergy Verified 07/30/19 07:56 Home Medications: Ambulatory Orders NK [No Known Home Medication] 10/16/19 - Psycho Social/Smoking Cessation Hx Smoking Status: No Smoking History: Never smoked Have you smoked in the past 12 months: No Number of Cigarettes Smoked Daily: 10 Information on smoking cessation initiated: No Hx Alcohol Use: No Drug/Substance Use Hx: No Substance Use Type: None Hx Substance Use Treatment: No *Physical Exam - Vital Signs Last Vital Signs Temp Pulse Resp BP Pulse Ox 98.0 F 109 H 18 137/98 100 10/16/19 16:15 10/16/19 16:15 10/16/19 16:15 10/16/19 16:15 10/16/19 16:15 ED Treatment Course - LABORATORY CBC & Chemistry Diagram: 10/16/19 17:59 10/16/19 17:59 Medical Decision Making - Medical Decision Making 34 year old female with above PMH presented to ED for headache x1 week 2 days. Initial Vital Signs Temp Pulse Resp BP Pulse Ox 98.0 F 109 H 18 137/98 100 10/16/19 16:15 10/16/19 16:15 10/16/19 16:15 10/16/19 16:15 10/16/19 16:15 Afebrile. Tachycardic. No tachypnea. Mild hypertension. No hypoxia on room air. 10/16/19 18:15 Urine Color Yellow 10/16/19 16:30 Urine Appearance Clear 10/16/19 16:30 Urine pH 5.0 (5.0-8.0) 10/16/19 16:30 Ur Specific [place] 1.024 (1.010-1.035) 10/16/19 16:30 Urine Protein Negative (NEGATIVE) 10/16/19 16:30 Urine Glucose (UA) Negative (NEGATIVE) 10/16/19 16:30 Urine Ketones Negative (NEGATIVE) 10/16/19 16:30 Urine Blood Negative (NEGATIVE) 10/16/19 16:30 Urine Nitrite Negative (NEGATIVE) 10/16/19 16:30 Urine Bilirubin Negative (NEGATIVE) 10/16/19 16:30 Urine Urobilinogen 0.2 mg/dL (0.2-1.0) 10/16/19 16:30 Ur Leukocyte Esterase Negative (NEGATIVE) 10/16/19 16:30 Urine HCG, Qual Negative 10/16/19 16:30 10/16/19 18:54 Pt signed out to night resident, pending lab results and disposition. Discharge - Discharge Information Problems reviewed: Yes Clinical Impression/Diagnosis: Headache Qualifiers: Headache type: unspecified Headache chronicity pattern: acute headache Intractability: not intractable Qualified Code(s): R51 - Headache Condition: Stable Disposition: HOME - Admission No - Additional Discharge Information Plan of Treatment: YOUR VISIT You came to the hospital because you were experiencing a headache. You were seen in the emergency department for care of this symptom. While here you received fluids and medication. You are now stable and may return home. MEDICATIONS Please continue to take your home medications as prescribed. ADDITIONAL CARE Please make an appointment to see your primary care provider, Dr. Singh, 1 week from today. Please make an appointment to see a neurologist. Referrals will be attached. ADDITIONAL INFORMATION Please call 911 or come directly to the emergency department if you experience recurrence of the symptoms that brought you to the hospital, unusual headache, vision change, shortness of breath, chest pain, numbness, tingling, loss of alertness/awareness, loss of function, unusual bleeding or any alarming symptoms. - Follow up/Referral Referrals: Nahun Cruz MD [Staff Physician] - Slade Garcia DO [Staff Physician] - Joe Guzmán MD [Staff Physician] - Berry Singh MD [Primary Care Provider] - - Patient Discharge Instructions - Post Discharge Activity Work/Back to School Note: Back to Work
[2019-10-16] MEDS ORDERED: METOCLOPRAMIDE HCL INJECTION 10 MG/2 ML VIAL IVPUSH ONE (16:53)
[2019-10-16] MEDS ORDERED: ACETAMINOPHEN 1000 MG/100 ML VIAL (NON FORMULARY) IVPB ONE (16:53)
--- NOTE | 2019-10-16 16:57 | PDOC ---
Attending Attestation - Resident Resident Name: Dinora Linares - ED Attending Attestation I have performed the following: I have examined & evaluated the patient, The case was reviewed & discussed with the resident, I agree w/resident's findings & plan, Exceptions are as noted - HPI HPI: 10/16/19 16:55 34y F hx htn, sarcoidosis, frequent headaches (?tension) presents with complaint of headache intermittently for the past week. Pt localizes the headache to above her left eye And states that her headache is worse when she lifts her eyebrows and when she touches that region. The patient takes Tylenol with improvement of the symptoms but the headache seems to return. The patient denies any headache deep to her skin,She denies any associated nausea, vomiting, vision changes, focal numbness, tingling, weakness, redness. Patient notes that she felt when she looked in the mirror this morning it may have looks a little bit swollen. She denies any neck pain, ear pain, throat pain. No recent trauma or injury GENERAL: The patient is awake, alert, and fully oriented, Nontoxic - in no acute distress. HEAD: Normocephalic, atraumatic. Mild tenderness on the superior medial aspect of the eyebrow, there is no erythema, induration, fluctuance, mass, edema, warmth, cerpitus. EYES: extraocular movements intact, sclera anicteric, conjunctiva clear. Visual fitzgerald intact by confrontation ENT: Normal voice, Moist mucous membranes. NECK: Normal range of motion, supple LUNGS: Breath sounds equal, clear to auscultation bilaterally. No wheezes, no rhonchi, no rales. HEART: Regular rate and rhythm, normal S1 and S2 without murmur, rub or gallop. ABDOMEN: Soft, nontender, No guarding, no rebound. No CVA tenderness EXTREMITIES: Normal range of motion, no edema. NEUROLOGICAL: No facial assymetry, Normal speech, Moving all 4 extremities spontaneously and symmetrically PSYCH: Normal mood, normal affect. SKIN: Warm, Dry, normal turgor, The pain may be secondary to mild inflammation However there is no obvious source of infection. There is no erythema or signs of infection/periorbital cellulitis.neuro exam is normal. no signs of mastoid tenderness/erythema. will ck basic labs will give analgesia will reassess 10/16/19 19:20 case sgined out to Dr pemberton and team to ressess and disposition - Physicial Exam PE: 10/20/19 19:20 see above - Medical Decision Making 10/20/19 19:20 see above
[2019-10-16] MEDS ORDERED: SODIUM CHLORIDE 1,000 ML IV STA (17:01)
[2019-10-16 17:11] LABS: HCG,QUALITATIVE URINE Negative
[2019-10-16 17:16] LABS: URINE APPEARANCE CLEAR; URINE BILIRUBIN NEGATIVE (NEGATIVE); URINE COLOR YELLOW; URINE GLUCOSE (UA) NEGATIVE (NEGATIVE); URINE KETONE NEGATIVE (NEGATIVE); URINE LEUK ESTERASE NEGATIVE (NEGATIVE); URINE NITRITE NEGATIVE (NEGATIVE); URINE PROTEIN NEGATIVE (NEGATIVE); URINE UROBILINOGEN 0.2 mg/dL (0.2-1.0)
[2019-10-16] MEDS ORDERED: METOCLOPRAMIDE HCL INJECTION 10 MG/2 ML VIAL ONE (17:59)
[2019-10-16] MEDS ORDERED: ACETAMINOPHEN INJECTION 100 ML IVPB ONE (18:00)
[2019-10-16 18:33] LABS: BASO % 0.7 % (0-2.0); EOS % 2.5 % (0-4.5); HEMATOCRIT 39.5 % (32.4-45.2); HEMOGLOBIN 12.3 GM/dL (10.7-15.3); LYMPH % 19.2 % (8-40); MCH 24.1 pg (25.7-33.7); MCHC 31.2 g/dl (32.0-36.0); MEAN CELL VOLUME 77.2 fl (80-96); MEAN PLT VOLUME 8.1 fl (7.5-11.1); MONO % 7.2 % (3.8-10.2); NEUT % 70.4 % (42.8-82.8); PLATELET COUNT 396 K/MM3 (134-434); RBC 5.12 M/mm3 (3.60-5.2); RDW 15.1 % (11.6-15.6); WHITE BLOOD COUNT 10.2 K/mm3 (4.0-10.0)
[2019-10-16 19:52] LABS: ALBUMIN 4.1 g/dl (3.4-5.0); BILIRUBIN,TOTAL 0.3 mg/dL (0.2-1); BLOOD UREA NITROGEN 14.3 mg/dL (7-18); CALCIUM 9.3 mg/dL (8.5-10.1); POTASSIUM 4.1 mmol/L (3.5-5.1); TOT PROT 8.3 g/dl (6.4-8.2)
[2019-10-16 20:26] VITALS: PULSE 86
[2019-10-16] MEDS ORDERED: DEXAMETHASONE 4 MG TABLET (FP) PO ONE (20:53)
[2019-10-16] MEDS ORDERED: DEXAMETHASONE SOD PHOSPHATE 10 MG/1 ML VIAL ONE (21:18)
--- NOTE | 2019-10-16 21:37 | PDOC ---
*Physical Exam - Vital Signs Last Vital Signs Temp Pulse Resp BP Pulse Ox 98.0 F 86 18 137/98 99 10/16/19 16:15 10/16/19 20:24 10/16/19 20:24 10/16/19 16:15 10/16/19 20:24 10/16/19 20:27 Pt handed off by Dr. Linares. Pt reports that she has experienced this THOMAS before but has never lasted more than 2 days. She has had this THOMAS for 1 week. She denies vision change, numb ness/tingling, or loss of function. She states that her father has had similar THOMAS and is treated with rest and avoidance of triggers such as light and loud noises. At this time her THOMAS is 8/10, located above the RIGHT eye, medially. She endorses that she is facing significant life stress from work, in the family, and family concerns. Denies FNVD, chills, and constipation No new meds/herbs, drugs/supplements No recent illness, sick contacts, or recent travel No LOC, tongue biting, tremor, aura REVIEW OF SYSTEMS CONSTITUTIONAL: Absent: fever, chills, diaphoresis, generalized weakness, malaise, loss of appetite, weight change HEENT: Absent: headache, rhinorrhea, nasal congestion, throat pain, throat swelling, difficulty swallowing, mouth swelling, ear pain, eye pain, visual changes CARDIOVASCULAR: Absent: chest pain, syncope, palpitations, irregular heart rate, lightheadedness, peripheral edema RESPIRATORY: Absent: cough, shortness of breath, dyspnea with exertion, orthopnea, wheezing, stridor, hemoptysis GASTROINTESTINAL: Absent: abdominal pain, abdominal distension, nausea, vomiting, diarrhea, constipation, melena, hematochezia GENITOURINARY: Absent: dysuria, frequency, urgency, hesitancy, hematuria, flank pain, genital pain MUSCULOSKELETAL: Absent: myalgia, arthralgia, joint swelling, back pain, neck pain SKIN: Absent: rash, itching, pallor HEMATOLOGIC/IMMUNOLOGIC: Absent: easy bleeding, easy bruising, lymphadenopathy, frequent infections ENDOCRINE: Absent: unexplained weight gain, unexplained weight loss, heat intolerance, cold intolerance NEUROLOGIC: Absent: headache, focal weakness or paresthesias, dizziness, unsteady gait, seizure, mental status changes, bladder or bowel incontinence PSYCHIATRIC: Absent: anxiety, depression, suicidal or homicidal ideation, hallucinations. GENERAL: AO x3 NAD HEAD: NCAT EYES: PABLO, EOMI, sclera anicteric, RIGHT sclera clouded (pt reports that she has herpes and sees an striker off), conjunctiva clear. No ptosis. ENT: Ears normal, nares patent, oropharynx clear without exudates, moist mucous membranes. NECK: Trachea midline, full range of motion, supple. LUNGS: CTAB , no wheezes, no crackles, no accessory muscle use. HEART: RRR, S1, S2 without murmur, rub or gallop. ABDOMEN: Soft, nontender, nondistended, normoactive bowel sounds, no guarding, no rebound, no hepatosplenomegaly, no masses. EXTREMITIES: 2+ pulses, warm, well-perfused, no edema. NEUROLOGICAL: Cranial nerves II through XII grossly intact. Strength 5/5 in UE and LE in both distal and proximal flexors. Brachial reflex 2+ BL. Patellar reflex 2+ BL. No dysdiadochokinesia. FTN NEG. Babinski NEG. Normal speech. Normal gait with appropriate strike phase, swing phase, and circumambulation PSYCH: Normal mood, normal affect. SKIN: Warm, dry, normal turgor, no rashes or lesions noted A/P # migraine VS herpes neuralgia VS life stress - Provide 10 mg decadron and reassess 10/16/19 21:27 THOMAS is now 5/10 and she would like to return home. Will dc with referral to neurology. ED Treatment Course - LABORATORY CBC & Chemistry Diagram: 10/16/19 17:59 10/16/19 17:59 - ADDITIONAL ORDERS Additional order review: Laboratory Results 10/16/19 10/16/19 17:59 16:30 Sodium 137 Potassium 4.1 Chloride 106 Carbon Dioxide 26 Anion Gap 5 L BUN 14.3 Creatinine 1.0 Est GFR (CKD-EPI)AfAm 84.53 Est GFR (CKD-EPI)NonAf 72.93 Random Glucose 113 H Calcium 9.3 Total Bilirubin 0.3 AST 15 ALT 24 Alkaline Phosphatase 137 H Total Protein 8.3 H Albumin 4.1 Urine Color Yellow Urine Appearance Clear Urine pH 5.0 Ur Specific [place] 1.024 Urine Protein Negative Urine Glucose (UA) Negative Urine Ketones Negative Urine Blood Negative Urine Nitrite Negative Urine Bilirubin Negative Urine Urobilinogen 0.2 Ur Leukocyte Esterase Negative Urine HCG, Qual Negative 10/16/19 17:59 RBC 5.12 MCV 77.2 L MCHC 31.2 L RDW 15.1 MPV 8.1 Neutrophils % 70.4 Lymphocytes % 19.2 D Monocytes % 7.2 Eosinophils % 2.5 Basophils % 0.7 - Medications Given in the ED: ED Medications Discontinued Medications Generic Name Dose Route Start Last Admin Trade Name Mariat PRN Reason Stop Dose Admin Acetaminophen 1,000 mg 10/16/19 16:53 10/16/19 18:10 Ofirmev Injection - IVPB 10/16/19 16:54 1,000 mg ONCE ONE Administration Dexamethasone 10 mg 10/16/19 20:53 10/16/19 21:22 Decadron - PO 10/16/19 20:54 10 mg ONCE ONE Administration Diphenhydramine HCl 25 mg 10/16/19 16:53 10/16/19 18:10 Benadryl Injection - IVPUSH 10/16/19 16:54 25 mg ONCE ONE Administration Sodium Chloride 1,000 mls @ 1,000 mls/hr 10/16/19 17:01 10/16/19 18:11 Normal Saline - IV 10/16/19 18:00 1,000 mls/hr ASDIR STA Administration Metoclopramide HCl 10 mg 10/16/19 16:53 10/16/19 18:11 Reglan Injection - IVPUSH 10/16/19 16:54 10 mg ONCE ONE Administration Discharge - Discharge Information Problems reviewed: Yes Clinical Impression/Diagnosis: Headache Qualifiers: Headache type: unspecified Headache chronicity pattern: acute headache Intractability: not intractable Qualified Code(s): R51 - Headache Condition: Stable Disposition: HOME - Additional Discharge Information Plan of Treatment: YOUR VISIT You came to the hospital because you were experiencing a headache. You were seen in the emergency department for care of this symptom. While here you received fluids and medication. You are now stable and may return home. MEDICATIONS Please continue to take your home medications as prescribed. ADDITIONAL CARE Please make an appointment to see your primary care provider, Dr. Singh, 1 week from today. Please make an appointment to see a neurologist. Referrals will be attached. ADDITIONAL INFORMATION Please call 911 or come directly to the emergency department if you experience recurrence of the symptoms that brought you to the hospital, unusual headache, vision change, shortness of breath, chest pain, numbness, tingling, loss of alertness/awareness, loss of function, unusual bleeding or any alarming symptoms. - Follow up/Referral Referrals: Joe Guzmán MD [Staff Physician] - Berry Singh MD [Primary Care Provider] - Slade Garcia DO [Staff Physician] - Nahun Curz MD [Staff Physician] - - Patient Discharge Instructions - Post Discharge Activity Work/Back to School Note: Back to Work
== END 2019-10-16 21:52 | disposition home or self-care (01) ==
LOC: JER 16:06
PROC: 3E0337Z Introduction of Electrolytic and Water Balance Substance into Peripheral Vein, Percutaneous Approach (ICD-10-PCS; principal; 2019-10-16)
PROC: 3E033NZ Introduction of Analgesics, Hypnotics, Sedatives into Peripheral Vein, Percutaneous Approach (ICD-10-PCS; 2019-10-16)
PROC: 3E033GC Introduction of Other Therapeutic Substance into Peripheral Vein, Percutaneous Approach (ICD-10-PCS; 2019-10-16)
PROC: 3E033GC Introduction of Other Therapeutic Substance into Peripheral Vein, Percutaneous Approach (ICD-10-PCS; 2019-10-16)
DX: R51 Headache (principal); I10 Essential (primary) hypertension; D86.9 Sarcoidosis, unspecified
CPT/HCPCS: 36415; 80053; 81003; 84703; 85025; 96361; 96374; 96375; 99284-25; J0131; J7030

== ENCOUNTER 2020-08-03 11:57 | Emergency (ER) | payer OTHER ==
[2020-08-03 12:14] VITALS: BMI 29.5
[2020-08-03 13:09] VITALS: BP 150/76; PULSE 103; TEMP 98.2
== END 2020-08-03 13:10 | disposition home or self-care (01) ==
LOC: JER 11:57
DX: M79.10 Myalgia, unspecified site (principal); R50.9 Fever, unspecified; Z11.59 Encounter for screening for other viral diseases
CPT/HCPCS: 99283-25

== ENCOUNTER 2020-08-05 10:37 | Emergency (ER) | payer OTHER ==
[2020-08-05 11:00] VITALS: BP 151/99; PULSE 90; TEMP 98; BMI 29.5
== END 2020-08-05 11:07 | disposition home or self-care (01) ==
LOC: JER 10:37
DX: R21 Rash and other nonspecific skin eruption (principal); R50.9 Fever, unspecified; M79.10 Myalgia, unspecified site; Z11.59 Encounter for screening for other viral diseases
CPT/HCPCS: 99283-25; C9803; U0003

== ENCOUNTER 2022-06-21 07:52 | Emergency (ER) | payer OTHER ==
[2022-06-21 08:21] VITALS: BMI 37.6
[2022-06-21] MEDS ORDERED: METOCLOPRAMIDE HCL INJECTION 10 MG/2 ML VIAL IVPB ONE (09:43)
[2022-06-21] MEDS ORDERED: ACETAMINOPHEN 1000 MG/100 ML BAG IVPB ONE (09:43)
[2022-06-21] MEDS ORDERED: METOCLOPRAMIDE HCL INJECTION 10 MG/2 ML VIAL ONE (09:48)
[2022-06-21] MEDS ORDERED: ACETAMINOPHEN INJECTION 100 ML IVPB ONE (09:48)
[2022-06-21 10:31] LABS: BASO % 0.7 % (0-2.0); EOS % 1.9 % (0-4.5); HEMATOCRIT 38.5 % (32.4-45.2); HEMOGLOBIN 12.2 GM/dL (10.7-15.3); LYMPH % 15.2 % (8-40); MCH 23.9 pg (25.7-33.7); MCHC 31.7 g/dl (32.0-36.0); MEAN CELL VOLUME 75.2 fl (80-96); MEAN PLT VOLUME 7.9 fl (7.5-11.1); MONO % 6.2 % (3.8-10.2); PLATELET COUNT 399 10^3/uL (134-434); RBC 5.12 M/mm3 (3.60-5.2); RDW 15.2 % (11.6-15.6)
[2022-06-21 10:46] LABS: ALBUMIN 4.2 g/dl (3.4-5.0); CALCIUM 9.6 mg/dL (8.5-10.1)
[2022-06-21 10:47] LABS: BLOOD UREA NITROGEN 9.2 mg/dL (7-18)
[2022-06-21 10:49] LABS: CREATININE 0.9 mg/dL (0.55-1.3)
[2022-06-21 10:51] LABS: BILIRUBIN,TOTAL 0.4 mg/dL (0.2-1); TOT PROT 8.2 g/dl (6.4-8.2)
[2022-06-21 11:25] VITALS: BP 140/83; RESP 16; TEMP 98.7
[2022-06-21 11:28] VITALS: PULSE 88
== END 2022-06-21 11:33 | disposition home or self-care (01) ==
LOC: JER 07:52
PROC: 3E0333Z Introduction of Anti-inflammatory into Peripheral Vein, Percutaneous Approach (ICD-10-PCS; principal; 2022-06-21)
PROC: 3E033GC Introduction of Other Therapeutic Substance into Peripheral Vein, Percutaneous Approach (ICD-10-PCS; 2022-06-21)
DX: R51.9 Headache, unspecified (principal); I10 Essential (primary) hypertension
CPT/HCPCS: 36415; 70450-TC; 80053; 84484; 84703; 85025; 93005; 93010; 99285-25

== ENCOUNTER 2022-06-25 15:38 | Emergency (ER) | payer OTHER ==
[2022-06-25 15:46] VITALS: BP 123/87; PULSE 110; RESP 18; TEMP 98.1; BMI 37.6
== END 2022-06-25 16:56 | disposition home or self-care (01) ==
LOC: JER 15:38
DX: J09.X2 Influenza due to identified novel influenza A virus with other respiratory manifestations (principal)
CPT/HCPCS: 0241U-QW; 99283-25

== ENCOUNTER 2022-10-27 07:41 | Emergency (ER) | payer OTHER ==
[2022-10-27 07:58] VITALS: RESP 20; BMI 38.8
[2022-10-27 08:43] LABS: EPI CELLS 25 /uL (0-25.1); HYALINE CASTS 1 /uL (0-3.1); PH,URINE 5.5 (5.0-8.0); URINE APPEARANCE CLEAR; URINE BACTERIA 268 /uL (0-1359); URINE BILIRUBIN NEGATIVE (NEGATIVE); URINE COLOR YELLOW; URINE GLUCOSE (UA) NEGATIVE (NEGATIVE); URINE KETONE NEGATIVE (NEGATIVE); URINE LEUK ESTERASE NEGATIVE (NEGATIVE); URINE NITRITE NEGATIVE (NEGATIVE); URINE PROTEIN 1+ (NEGATIVE); URINE RBC 7 /uL (0-23.9); URINE UROBILINOGEN 0.2 mg/dL (0.2-1.0); URINE WBC 11 /uL (0-25.8)
[2022-10-27 08:44] LABS: HCG,QUALITATIVE URINE Negative
[2022-10-27 08:49] VITALS: BP 134/95; PULSE 102; TEMP 98.8
[2022-10-27 10:44] LABS: BASO % 0.6 % (0-2.0); HEMATOCRIT 36.1 % (32.4-45.2); HEMOGLOBIN 11.3 GM/dL (10.7-15.3); MCH 22.9 pg (25.7-33.7); MCHC 31.3 g/dl (32.0-36.0); MEAN PLT VOLUME 7.7 fl (7.5-11.1); MONO % 4.8 % (3.8-10.2); NEUT % 70.6 % (42.8-82.8); PLATELET COUNT 469 10^3/uL (134-434); RBC 4.95 M/mm3 (3.60-5.2); RDW 15.9 % (11.6-15.6); WHITE BLOOD COUNT 9.7 K/mm3 (4.0-10.0)
[2022-10-27 11:00] LABS: CALCIUM 9.5 mg/dL (8.5-10.1)
[2022-10-27 11:01] LABS: BLOOD UREA NITROGEN 13.8 mg/dL (7-18)
== END 2022-10-27 12:33 | disposition home or self-care (01) ==
LOC: JER 07:41
DX: N83.202 Unspecified ovarian cyst, left side (principal); R10.2 Pelvic and perineal pain
CPT/HCPCS: 36415; 76830-TC; 80048; 81003; 84703; 85025; 87086; 99284-25

== ENCOUNTER 2023-12-17 20:51 | Emergency (ER) | payer OTHER ==
[2023-12-17 20:57] VITALS: RESP 20; BMI 39.9
[2023-12-17] MEDS ORDERED: ACETAMINOPHEN INJECTION 100 ML IVPB ONE (22:55)
[2023-12-17] MEDS ORDERED: METOCLOPRAMIDE HCL INJECTION 10 MG/2 ML VIAL ONE (22:55)
[2023-12-17 23:03] VITALS: BP 145/85; PULSE 93; TEMP 98.6
[2023-12-17 23:03] LABS: BASO % 0.8 % (0-2.0); EOS % 3.7 % (0-4.5); HEMATOCRIT 38.4 % (32.4-45.2); HEMOGLOBIN 12.2 GM/dL (10.7-15.3); LYMPH % 18.1 % (8-40); MCH 23.5 pg (25.7-33.7); MCHC 31.7 g/dl (32.0-36.0); MEAN CELL VOLUME 74.2 fl (80-96); MEAN PLT VOLUME 7.3 fl (7.5-11.1); MONO % 7.1 % (3.8-10.2); NEUT % 70.3 % (42.8-82.8); PLATELET COUNT 456 10^3/uL (134-434); RBC 5.18 M/mm3 (3.60-5.2); RDW 15.6 % (11.6-15.6); WHITE BLOOD COUNT 10.5 K/mm3 (4.0-10.0)
[2023-12-17] MEDS: SODIUM CHLORIDE 0.9% 500 ML INFUS.BAG IV ONE (23:04)
[2023-12-17] MEDS: ACETAMINOPHEN 1000 MG/100 ML BAG IVPB ONE (23:04)
[2023-12-17] MEDS: METOCLOPRAMIDE HCL INJECTION 10 MG/2 ML VIAL IVPUSH ONE (23:05)
[2023-12-17 23:11] LABS: POTASSIUM 4.1 mmol/L (3.5-5.1)
[2023-12-17 23:15] LABS: ALBUMIN 3.3 g/dl (3.4-5.0); BLOOD UREA NITROGEN 18.2 mg/dL (7-18); CALCIUM 9.5 mg/dL (8.5-10.1)
[2023-12-17 23:20] LABS: BILIRUBIN,TOTAL 0.4 mg/dL (0.2-1); TOT PROT 7.6 g/dl (6.4-8.2)
== END 2023-12-18 01:30 | disposition home or self-care (01) ==
LOC: JER 20:51
PROC: 3E033NZ Introduction of Analgesics, Hypnotics, Sedatives into Peripheral Vein, Percutaneous Approach (ICD-10-PCS; principal; 2023-12-17)
PROC: 3E033GC Introduction of Other Therapeutic Substance into Peripheral Vein, Percutaneous Approach (ICD-10-PCS; 2023-12-17)
DX: R51.9 Headache, unspecified (principal); I10 Essential (primary) hypertension
CPT/HCPCS: 36415; 70450-TC; 80053; 84484; 85025; 93005; 93010; 99285-25; J0131